=== PATIENT | female | born 2000 | race Two or more races ===

== ENCOUNTER 2020-04-30 14:00 | Emergency (ER) | payer BC, SELFPAY ==
[2020-04-30 14:08] VITALS: BP 107/72; PULSE 86; RESP 12; TEMP 36.6; O2SAT 99
--- NOTE | 2020-04-30 14:12 | ED.URI ---
HPI - URI/Sore Throat General Chief Complaint: Upper Respiratory Infection Stated Complaint: Sore Throat,Chills Time Seen by Provider: 04/30/20 14:14 Source: patient and RN notes reviewed Mode of arrival: ambulatory Limitations: no limitations History of Present Illness HPI Narrative: 20-year-old female presents to [facility] care with complaints of sore throat for the past 1 day associated with fevers, chills and headache. Patient states that she has also noted some nasal drainage today, denies any ear pain or any feelings of sinus pressure, no acute cough or any shortness of breath. Patient states that she has taken Ibuprofen today for her fever and sore throat and headache pain. MD elicited complaint: fever, sore throat and other (chills and headache) Pertinent past history: asthma Onset (ago): day(s) (1) Consistency: constant Severity: moderate Pain scale (0-10): 6 Description of mucous: clear Able to tolerate fluids by mouth: Yes Exacerbating factors: swallowing Relieving factors: NSAID and gargling Associated symptoms: fever, chills, headache, nasal congestion and sore throat Treatments prior to arrival: ibuprofen Related Data Home Medications Medication Instructions Recorded Confirmed levonorgestrel 20 mcg/24 hours (5 1 device I-UTERINE ONCE 11/01/19 yrs) 52 mg intrauterine device Allergies Allergy/AdvReac Type Severity Reaction Status Date / Time No Known Allergies Allergy Unknown Verified 11/01/19 09:36 Review of Systems Review of Systems: Narrative: CONSTITUTIONAL: positive reported fever, chills, or sweats. EYES: Denies visual changes, redness, or discharge. ENT: positive rhinorrhea, congestion, sore throat, no otalgia. CARDIOVASCULAR: Denies chest pain, palpitations, or edema. RESPIRATORY: Denies cough or dyspnea. GASTROINTESTINAL: Denies abdominal pain, nausea, vomiting, or diarrhea. GENITOURINARY: Denies dysuria or hematuria. SKIN: Denies rash or itching. MUSCULOSKELETAL: Denies back pain, joint pain, or myalgia. NEUROLOGIC: positive frontal headache,nonumbness, or weakness. PSYCHIATRIC: Denies anxiety or depression. All systems reviewed & are unremarkable except as noted in HPI and below PMFSH Past Medical History Medical History (Updated 04/30/20 @ 14:47 by Xiomara Bay NP) Asthma Surgical History Surgical History (Updated 04/30/20 @ 14:47 by Xiomara Bay NP) No significant past surgical history Family History Family History Other Asthma Social History Social History (Updated 04/30/20 @ 14:53 by Xiomara Bay NP) Smoking status: Never smoker Alcohol intake: never Living arrangements: with family Occupation/Education: student Gender identity (if verbalized by the patient): Female Comments At time of signature, agree with nursing past medical, surgical, social history. There is no relevant family history pertinent to the presenting complaint Exam Narrative: Exam Narrative: GENERAL: Well-appearing, well-nourished, and in no acute distress. HEAD: Normocephalic, atraumatic. EYES: PERRLA and EOMI. ENT: Nares red and swollen,clear rhinorrhea no epistaxis. Mucous membranes moist.TM's normal with good light reflex, throat red with enlarged tonsils and exudate on tonsils. NECK: Supple.lymphadenopathy CHEST: Clear to auscultation. No respiratory distress.SAO2 99% on room air HEART: Regular rate and rhythm. No murmur heard. Normal peripheral pulses. ABDOMEN: Soft, nontender, nondistended, normal active bowel sounds. EXTREMITIES: Normal range of motion. No edema. SKIN: Warm, dry, no rash. NEURO: No focal deficits. Alert and oriented x3. MDM - URI/Sore Throat Differential Diagnosis Differential diagnosis: Likely upper respiratory infection, sinusitis, pharyngitis and other (exudative tonsillitis) Medical Records Attestation: I reviewed the patient's medical records. Lab Data Attestation: I reviewed the pat
== END 2020-04-30 14:42 | disposition home or self-care (01) ==
PROVIDERS: Emergency Provider Registered Nurse; PCP Family Medicine
DX: J03.90 Acute tonsillitis, unspecified (principal); J45.909 Unspecified asthma, uncomplicated
CPT/HCPCS: 87081; 87880; 99213; G0463